=== PATIENT | male | born 1930 | race Caucasian/White ===

== ENCOUNTER 2017-07-06 18:43 | Emergency (ER) | payer MEDICARE, OTHER ==
[2017-07-06 19:58] LABS: #Basophils 0.1 thou/uL (0.0-0.2); #Eosinphils 0.1 thou/uL (0.0-0.7); #Lymphocytes 1.4 thou/uL (1.20-3.40); #Monocytes 0.7 thou/uL (0.11-0.59); #Neutrophils 5.4 thou/uL (1.40-6.50); %Basophils 1.2 % (0.0-1.0); %Eosinophils 1.6 % (0.0-10.0); %Lymphocytes 18.2 % (21.0-51.0); %Monocytes 8.9 % (0.0-10.0); Hematocrit 43.1 % (42.0-52.0); Mean Platelet Volume 5.6 fL (7.4-10.4); Red Blood Cell (RBC) Count 4.66 mill/uL (4.70-6.10); White Blood Cell (WBC) Count 7.6 thou/uL (4.8-10.8)
[2017-07-06 20:06] LABS: PTT 27.5 SEC (22.9-36.1); Prothrombin Time 13.3 SEC (12.0-14.7)
[2017-07-06 20:09] LABS: Lactic Acid - Sepsis 1.4 mmol/L (0.5-2.2)
[2017-07-06 20:13] LABS: Anion Gap 15 mmol/L (10-20); BUN (Urea Nitrogen) 16 mg/dL (8.4-25.7); Calc. Creatinine Clearance 0 mL/min (70-130); Calcium 9.8 mg/dL (7.8-10.44); Carbon Dioxide 27 mmol/L (23-31); Chloride 104 mmol/L (98-107); Estimated GFR-MDRD 69
[2017-07-06 20:17] LABS: Troponin I 0.011 ng/mL (< 0.028)
--- NOTE | 2017-07-06 20:56 | CT ---
CT HEAD NONCONTRAST 07/06/17 HISTORY: Fall. Head injury. FINDINGS: There is no evidence of acute intracranial hemorrhage. Extensive motion artifact obscures detail. No mass effect or shift of midline structures is apparent. Diffuse cortical atrophy and chronic ischemic small vessel disease are similar in appearance to the previous exam. IMPRESSION: Chronic type findings are stable. No acute intracranial abnormalities are demonstrated on noncontrast CT head. POS: [facility]
--- NOTE | 2017-07-06 21:03 | RAD ---
CHEST ONE VIEW 07/06/17 HISTORY: Fall. Dyspnea. COMPARISON: 10/01/09. FINDINGS: The cardiac silhouette is magnified by projection. Pulmonary vasculature is unremarkable. Mediastinum is midline. There is no lobar consolidation or evidence of pneumothorax. auto wash buffer leads overl ie the chest. IMPRESSION: No active cardiopulmonary abnormalities are demonstrated. POS: [facility]
--- NOTE | 2017-08-10 12:49 | EKG ---
Test Reason : WEAKNESS Blood Pressure : / mmHG Vent. Rate : 065 BPM Atrial Rate : 065 BPM P-R Int : 166 ms QRS Dur : 116 ms QT Int : 404 ms P-R-T Axes : 054 -53 018 degrees QTc Int : 420 ms Sinus rhythm with occasional Premature ventricular complexes Left axis deviation Incomplete left bundle branch block Nonspecific ST abnormality Abnormal ECG Confirmed by NIMISHA CLEMONS ([id number]), editorial project manager MINH RICHEY ([id number] on 08/10/2017 12:48:40 PM Referred By: KACI Confirmed By:NIMISHA CLEMONS
== END 2017-07-06 21:45 | disposition home or self-care (01) ==
LOC: SCSER 18:43
DX: R53.1 Weakness (principal); N40.0 Benign prostatic hyperplasia without lower urinary tract symptoms; G30.9 Alzheimer's disease, unspecified; F02.81 Dementia in other diseases classified elsewhere, unspecified severity, with behavioral disturbance; Z87.891 Personal history of nicotine dependence; Z79.899 Other long term (current) drug therapy
CPT/HCPCS: 36415; 70450; 71010; 80048; 82553; 83605; 84484; 85025; 85610; 85730; 93005

== ENCOUNTER 2017-11-09 17:20 | Emergency (ER) | payer MEDICARE, OTHER | END 2017-11-09 18:53 | disposition home or self-care (01) | LOC: SCSER 17:20 | DX: J06.9 Acute upper respiratory infection, unspecified (principal); N40.0 Benign prostatic hyperplasia without lower urinary tract symptoms; F03.90 Unspecified dementia, unspecified severity, without behavioral disturbance, psychotic disturbance, mood disturbance, and anxiety; Z87.891 Personal history of nicotine dependence; Z79.899 Other long term (current) drug therapy | CPT/HCPCS: 87804; 99283 ==

== ENCOUNTER 2018-06-12 16:09 | Emergency (ER) | payer MEDICARE, OTHER ==
[2018-06-12] MEDS ORDERED: Bacitracin Zinc 1 Packet ONE (16:55)
== END 2018-06-12 17:14 | disposition home or self-care (01) ==
LOC: SCSER 16:09
DX: S51.811A Laceration without foreign body of right forearm, initial encounter (principal); L03.113 Cellulitis of right upper limb; N40.0 Benign prostatic hyperplasia without lower urinary tract symptoms; F03.90 Unspecified dementia, unspecified severity, without behavioral disturbance, psychotic disturbance, mood disturbance, and anxiety; Z87.891 Personal history of nicotine dependence; Z79.899 Other long term (current) drug therapy; X58.XXXA Exposure to other specified factors, initial encounter
CPT/HCPCS: 99282